=== PATIENT | female | born 1935 | race Caucasian/White ===

== ENCOUNTER → 2016-10-17 | Outpatient (CLI) | payer MEDICARE, OTHER ==
[~2016-10-17] MED LIST: ALBU17IN INH; ALLE180T33 PO; ASPI81TA85 PO; CALCTAB7 PO; COUM1TAB17 PO; FERR325T3 PO; FURO40TA2 PO; IRON28TA PO; KLOR1TAB69 PO; LIPI10TA PO; METO1TAB32 PO; MONT10TA2 PO; NEXI40CA PO; STOO100C PO; TYLE325T5 PO
--- NOTE | 2016-10-17 12:18 | REP ---
TRIPLE PHASE BONE SCAN OF THE KNEES: Following the intravenous administration of 22 millicuries technetium M MDP, the patient's knees are imaged in the flow phase in the anterior and posterior projections. Comparison is made with prior study of 07/12/2014. There is relatively symmetrical blood flow to the knees. Immediate blood pole and 2.5-hour delayed images are performed of the knees in the anterior, posterior and both lateral projections. Photopenic areas in the left knee joint is compatible with a metallic knee prosthesis. There is increased periarticular uptake again seen in the right joint consistent with arthritic change. There is relatively normal physiologic uptake along the margins of the metallic left knee prosthesis with no change since the prior study. IMPRESSION: Left knee prosthesis without compelling scintigraphic evidence of loosening or infection. Arthritic changes right knee joint. Findings are similar to the prior study 07/02/2014. Signed by Alejandro Lakhani MD 10/17/2016 03:14 P
== END ==
LOC: M RAD 08:24
PROVIDERS: ATTEND Physician Assistant
DX: Z96.652 Presence of left artificial knee joint (principal); M17.12 Unilateral primary osteoarthritis, left knee
CPT/HCPCS: 78315; A9503

== ENCOUNTER → 2018-11-16 | Outpatient (CLI) | payer MEDICARE, OTHER ==
[~2018-11-16] MED LIST changes: +MM S100C PO; -STOO100C PO
--- NOTE | 2018-11-16 13:20 | REP ---
Right lower extremity Duplex Doppler venous ultrasound: Real time compression and duplex Doppler interrogation of the right lower extremity deep venous system is performed. The right common femoral, superficial femoral and popliteal veins are fully compressible with transducer pressure and demonstrate normal spontaneous and phasic flow, without evidence of deep venous thrombosis. Impression: No evidence of deep venous thrombosis of the right lower extremity femoral popliteal venous system. Electronically Signed by Alejandro Lakhani MD 11/16/2018 01:12 P
== END ==
LOC: M RAD 12:25
PROVIDERS: ATTEND Physician Assistant
DX: M79.604 Pain in right leg (principal)